=== PATIENT | female | born 1990 | race Caucasian/White ===

== ENCOUNTER 2017-01-22 00:50 | Emergency (ER) | payer OTHER ==
[~2017-01-22] VITALS: Ht 157.5 cm; Wt 55.0 kg
[2017-01-22 00:52] VITALS: BP 122/69; PULSE 111; RESP 16; TEMP 98; O2SAT 96
[2017-01-22] MEDS ORDERED: SODIUM CHLOR 0.9% 1000 ML INJ 1,000 ML IV ONE ×2 (01:45→02:30)
[2017-01-22] MEDS ORDERED: ONDANSETRON HCL 4 MG/2 ML VIAL IV PUSH ONE (01:45)
[2017-01-22] MEDS ORDERED: FAMOTIDINE 20 MG/2 ML VIAL IV PUSH SCH (01:45)
--- NOTE | 2017-01-22 01:59 | PD ---
HPI Chief Complaint: GI Complaint Time Seen by Provider: 01:06 Travel History International Travel<30 days: No Contact w/Intl Traveler<30days: No Traveled to known affect area: No History of Present Illness HPI Patient is a 26-year-old female with a 1-year-old baby who recently was in the ER the baby for gastroenteritis vomiting diarrhea. Mother now developed symptoms at 12:00 12 hours prior to presentation she is vomiting and has diarrhea as well. She is unable to keep anything down. She took warm water which made her vomit as well. Her baby was put on Zofran with good effect and the baby is much improved. She has minimal epigastric pain does not radiate but it is not made better or worse with the water. She has no prior history of GERD or gastritis. [facility] Past Medical History Medical History: Denies Significant Hx Diminished Hearing: No ?: Not LMP: 12/10/16 Past Surgical History Appendectomy: Yes Social History Alcohol Use: No Tobacco Use: No Substance Use: No Allergies-Medications (Allergen,Severity, Reaction): Coded Allergies: No Known Allergies (Unverified , 01/22/17) Reported Meds & Prescriptions Reported Meds & Active Scripts Active Famotidine 20 Mg Tab 20 Mg PO BID Zofran Odt (Ondansetron Odt) 4 Mg Tab 4 Mg SL Q6HR PRN Review of Systems Except as stated in HPI: all other systems reviewed are Neg Cardiovascular: Positive: Chest Pain or Discomfort Physical Exam Narrative GENERAL: non toxic but color pale SKIN: Warm and dry. HEAD: Atraumatic. Normocephalic. EYES: Pupils equal and round. No scleral icterus. No injection or drainage. ENT: No nasal bleeding or discharge. Mucous membranes pink and moist. NECK: Trachea midline. No JVD. CARDIOVASCULAR: Regular rate and rhythm. RESPIRATORY: No accessory muscle use. Clear to auscultation. Breath sounds equal bilaterally. GASTROINTESTINAL: Abdomen soft, + mild epigastric tender, nondistended. Hepatic and splenic margins not palpable. MUSCULOSKELETAL: Extremities without clubbing, cyanosis, or edema. No obvious deformities. NEUROLOGICAL: Awake and alert. No obvious cranial nerve deficits. Motor grossly within normal limits. Five out of 5 muscle strength in the arms and legs. Normal speech. PSYCHIATRIC: Appropriate mood and affect; insight and judgment normal. Data Data Last Documented VS Vital Signs Date Time Temp Pulse Resp B/P (MAP) Pulse Ox O2 Delivery O2 Flow Rate FiO2 01/22/17 01:14 14 01/22/17 00:52 98.0 111 122/69 (86) 96 Room Air Orders Orders Complete Blood Count With Diff (01/22/17 01:36) Comprehensive Metabolic Panel (01/22/17 01:36) Lipase (01/22/17 01:36) Ondansetron Inj (Zofran Inj) (01/22/17 01:45) Sodium Chlor 0.9% 1000 Ml Inj (Ns 1000 M (01/22/17 01:45) Famotidine Inj (Pepcid Inj) (01/22/17 01:45) Sodium Chlor 0.9% 1000 Ml Inj (Ns 1000 M (01/22/17 02:30) Labs Laboratory Tests Test 01/22/17 01:57 White Blood Count 9.2 TH/MM3 Red Blood Count 4.63 MIL/MM3 Hemoglobin 13.9 GM/DL Hematocrit 40.4 % Mean Corpuscular Volume 87.3 FL Mean Corpuscular Hemoglobin 30.0 PG Mean Corpuscular Hemoglobin Concent 34.3 % Red Cell Distribution Width 13.4 % Platelet Count 245 TH/MM3 Mean Platelet Volume 7.9 FL Neutrophils (%) (Auto) 91.5 % Lymphocytes (%) (Auto) 4.9 % Monocytes (%) (Auto) 3.1 % Eosinophils (%) (Auto) 0.3 % Basophils (%) (Auto) 0.2 % Neutrophils # (Auto) 8.4 TH/MM3 Lymphocytes # (Auto) 0.5 TH/MM3 Monocytes # (Auto) 0.3 TH/MM3 Eosinophils # (Auto) 0.0 TH/MM3 Basophils # (Auto) 0.0 TH/MM3 CBC Comment DIFF FINAL Differential Comment Blood Urea Nitrogen 13 MG/DL Creatinine 0.67 MG/DL Random Glucose 94 MG/DL Total Protein 7.4 GM/DL Albumin 4.3 GM/DL Calcium Level 8.3 MG/DL Alkaline Phosphatase 102 U/L Aspartate Amino Transf (AST/SGOT) 12 U/L Alanine Aminotransferase (ALT/SGPT) 19 U/L Total Bilirubin 1.2 MG/DL Sodium Level 137 MEQ/L Potassium Level 3.9 MEQ/L Chloride Level 106 MEQ/L Carbon Dioxide Level 20.9 MEQ/L Anion Gap 10 MEQ/L Estimat Glomerular Filtration Rate 106 ML/MIN Lipase 81 U/L MDM Medical Decision Making Medical Screen Exam Complete: Yes Emergency Medical Condition: Yes Differential Diagnosis viral gastroenteritis, vs food bourne bact illness vs GB disease or pancreatitis , other Narrative Course pt is feeling better after pepcid and zofran labs normal only co2 panel 20 , 2 liters of NS andf home with Rx for zofran ODT 10 pills follow up PCP outpt Diagnosis Primary Impression: Gastroenteritis Patient Instructions: Gastroenteritis (ED), General Instructions Scripts Famotidine (Famotidine) 20 Mg Tab 20 MG PO BID, #20 TAB 0 Refills Prov: Gerard Vincent MD 01/22/17 Ondansetron Odt (Zofran Odt) 4 Mg Tab 4 MG SL Q6HR Y for Nausea/Vomiting, #15 TAB 0 Refills Prov: Gerard Vincent MD 01/22/17 Disposition: 01 DISCHARGE HOME Condition: Good Gerard Vincent MD Jan 22, 2017 01:59
[2017-01-22 02:11] LABS: AUTOMATED NEUTROPHIL # 8.4 TH/MM3 (1.8-7.7); BASOPHIL % 0.2 % (0.0-2.0); EOSINOPHIL % 0.3 % (0.0-4.0); HEMATOCRIT 40.4 % (35.0-46.0); HEMOGLOBIN 13.9 GM/DL (11.6-15.3); LYMPH % 4.9 % (9.0-44.0); LYMPHOCYTE # 0.5 TH/MM3 (1.0-4.8); MEAN CELL VOLUME 87.3 FL (80.0-100.0); MEAN CORPUSCULAR HGB CONC 34.3 % (32.0-36.0); MEAN PLATELET VOLUME 7.9 FL (7.0-11.0); MONO % 3.1 % (0.0-8.0); MONOCYTE # 0.3 TH/MM3 (0-0.9); NEUT % 91.5 % (16.0-70.0); PLATELET COUNT 245 TH/MM3 (150-450); RED BLOOD COUNT 4.63 MIL/MM3 (4.00-5.30); RED CELL DISTRIBUTION WIDTH 13.4 % (11.6-17.2); WHITE BLOOD COUNT 9.2 TH/MM3 (4.0-11.0)
[2017-01-22 02:27] LABS: ALBUMIN 4.3 GM/DL (3.4-5.0); ALT (GPT) 19 U/L (10-53); AST (GOT) 12 U/L (15-37); BICARBONATE 20.9 MEQ/L (21.0-32.0); BLOOD UREA NITROGEN 13 MG/DL (7-18); CALCIUM 8.3 MG/DL (8.5-10.1); CHLORIDE 106 MEQ/L (98-107); CREATININE 0.67 MG/DL (0.50-1.00); GLOMERULAR FILTRATION RATE 106 ML/MIN (>89); GLUCOSE,RANDOM 94 MG/DL (74-106); LIPASE 81 U/L (73-393); SODIUM (NA) 137 MEQ/L (136-145)
[2017-01-22 02:29] LABS: ALKALINE PHOSPHATASE 102 U/L (45-117); TOTAL BILIRUBIN ADULT 1.2 MG/DL (0.2-1.0); TOTAL PROTEIN 7.4 GM/DL (6.4-8.2)
[2017-01-22] MEDS ORDERED: ZOFR4TAB3 SL (03:06)
[2017-01-22] MEDS ORDERED: FAMO20TA2 PO (03:06)
[2017-01-22 03:42] VITALS: BP 106/58; PULSE 75; RESP 14; O2SAT 99
== END 2017-01-22 03:42 | disposition home or self-care (01) ==
LOC: NEPC 00:50
DX: K52.9 Noninfective gastroenteritis and colitis, unspecified (principal); Z90.89 Acquired absence of other organs
CPT/HCPCS: 80053; 83690; 85025; 96374; 96375; 99284; J2405; J7030